=== PATIENT | female | born 1995 | race Hispanic/Latino ===

== ENCOUNTER 2019-02-07 06:50 | Emergency (ER) | payer OTHER ==
[~2019-02-07] VITALS: Ht 154.9 cm; Wt 83.0 kg
[2019-02-07] MEDS ORDERED: SODIUM CHLORIDE 0.9% 1000ML 1,000 ML IV STA (07:39)
[2019-02-07] MEDS ORDERED: PANTOPRAZOLE 40 MG 10ML VIAL IV STA (07:39)
[2019-02-07 08:07] LABS: BASOPHILS # (AUTO) 0.1 (0.0-0.1); BASOPHILS % 0.8 % (0.0-1.0); EOSINOPHILS # (AUTO) 0.1 (0.0-0.4); EOSINOPHILS % 0.8 % (0.0-6.0); HEMATOCRIT 39.4 % (34.2-44.1); HEMOGLOBIN 13.3 g/dL (12.0-16.0); LYMPHOCYTES # (AUTO) 3.2 (1.0-3.2); LYMPHOCYTES % 22.2 % (18.0-39.1); MEAN CORPUSCULAR HEMOGLOBIN 27.5 pg (28-32); MEAN CORPUSCULAR HGB CONC 33.8 g/dL (31-35); MEAN CORPUSCULAR VOLUME 81.4 fL (81-99); MONOCYTES # (AUTO) 1.2 (0.2-0.8); MONOCYTES % 8.3 % (4.4-11.3); NEUTROPHILS # (AUTO) 9.5 (2.1-6.9); NEUTROPHILS % 66.8 % (38.7-80.0); PLATELET COUNT 356 x10e3/uL (140-360); RED BLOOD COUNT 4.84 x10e6/uL (3.6-5.1)
[2019-02-07 08:11] LABS: BILIRUBIN,URINE NEGATIVE (NEGATIVE); CLARITY,URINE CLEAR (CLEAR); COLOR,URINE YELLOW (YELLOW); KETONES,URINE NEGATIVE (NEGATIVE); LEUKOCYTE ESTERASE ,URINE NEGATIVE (NEGATIVE); NITRITE,URINE NEGATIVE (NEGATIVE); PROTEIN,URINE DIPSTICK NEGATIVE (NEGATIVE); URINE UROBILINOGEN 0.2 mg/dL (0.2 - 1)
[2019-02-07] MEDS ORDERED: HYDROCODONE/APAP 7.5MG-325MG 1 EA TAB PO NR (08:15)
[2019-02-07] MEDS ORDERED: ONDANSETRON HCL INJ 2MG/ML 2ML 2 MG/ML VIAL IV NR (08:15)
[2019-02-07 08:27] LABS: ALANINE AMINOTRANSFERASE 39 IU/L (0-55); ALBUMIN 3.5 g/dL (3.5-5.0); ALKALINE PHOSPHATASE 120 IU/L (40-150); ANION GAP 12.6 mmol/L (8-16); BLOOD UREA NITROGEN 12 mg/dL (7-26); BUN/CREATININE RATIO 16 (6-25); CALCIUM 9.4 mg/dL (8.4-10.2); CARBON DIOXIDE 26 mmol/L (22-29); CHLORIDE 106 mmol/L (98-107); CREATININE, SERUM 0.73 mg/dL (0.57-1.11); EST GLOMERULAR FILTRATION RATE > 60 ML/MIN (60-); GLUCOSE 94 mg/dL (74-118); LIPASE 20 U/L (8-78); POTASSIUM 3.6 mmol/L (3.5-5.1); SODIUM 141 mmol/L (136-145)
[2019-02-07 08:28] LABS: BACTERIA,URINE FEW /HPF; EPITHELIAL CELLS,URINE FEW /LPF; RBC,URINE 0-5 /HPF (0-5); WBC,URINE (MAN) 0-5 /HPF (0-5)
[2019-02-07 09:00] LABS: PREGNANCY TEST, URINE NEGATIVE (NEGATIVE)
--- NOTE | 2019-02-07 11:04 | Diagnostic Imaging Report ---
Exam: Pelvic ultrasound History: Lower abdominal pain, possible history of polycystic ovarian syndrome. Comparison: None. Findings: Transabdominal evaluation of the pelvis. The uterus measures 8.3 x 2.8 x 5.5 cm. The endometrial stripe measures 0.4 cm. Right ovary measures 2.6 x 1.8 x 2.3 cm and the left ovary measures 2.5 x 2.3 x 2.4 cm, and Doppler flow is demonstrated bilaterally. No free fluid. Impression: Unremarkable study. Signed by: Dr. Xenia Cruz MD on 02/07/2019 11:00 AM
== END 2019-02-07 11:20 | disposition home or self-care (01) ==
LOC: ER 06:50
DX: R10.31 Right lower quadrant pain (principal); R10.32 Left lower quadrant pain
CPT/HCPCS: 36415; 76856; 80053; 81001; 81025; 83036; 83690; 85025; 87086; 99284; J2405; J7030

== ENCOUNTER 2019-11-21 12:27 | Observation (INO) | payer OTHER ==
[~2019-11-21] VITALS: Ht 154.9 cm; Wt 85.3 kg
[2019-11-21] MEDS ORDERED: SODIUM CHLORIDE 0.9% 1000ML 1,000 ML IV STA (12:46)
[2019-11-21 13:10] LABS: BASOPHILS # (AUTO) 0.1 (0.0-0.1); BASOPHILS % 0.6 % (0.0-1.0); EOSINOPHILS # (AUTO) 0.1 (0.0-0.4); EOSINOPHILS % 0.5 % (0.0-6.0); HEMATOCRIT 42.8 % (34.2-44.1); HEMOGLOBIN 13.7 g/dL (12.0-16.0); LYMPHOCYTES % 16.1 % (18.0-39.1); MEAN CORPUSCULAR HEMOGLOBIN 26.2 pg (28-32); MONOCYTES # (AUTO) 0.9 (0.2-0.8); MONOCYTES % 4.5 % (4.4-11.3); NEUTROPHILS # (AUTO) 14.7 (2.1-6.9); NEUTROPHILS % 77.5 % (38.7-80.0); PLATELET COUNT 410 x10e3/uL (140-360); RED BLOOD COUNT 5.22 x10e6/uL (3.6-5.1)
[2019-11-21 13:16] LABS: CLARITY,URINE CLEAR (CLEAR); COLOR,URINE YELLOW (YELLOW); LEUKOCYTE ESTERASE ,URINE NEGATIVE (NEGATIVE); NITRITE,URINE NEGATIVE (NEGATIVE); PROTEIN,URINE DIPSTICK NEGATIVE (NEGATIVE)
[2019-11-21 13:17] LABS: BILIRUBIN,URINE NEGATIVE (NEGATIVE); KETONES,URINE NEGATIVE (NEGATIVE); URINE UROBILINOGEN 0.2 mg/dL (0.2 - 1)
[2019-11-21 13:27] LABS: BACTERIA,URINE MODERATE /HPF; EPITHELIAL CELLS,URINE MODERATE /LPF; RBC,URINE 0-5 /HPF (0-5)
[2019-11-21 13:29] LABS: ALANINE AMINOTRANSFERASE 28 IU/L (0-55); ALBUMIN 4.1 g/dL (3.5-5.0); ALBUMIN/GLOBULIN RATIO 1.2 (0.8-2.0); ALKALINE PHOSPHATASE 132 IU/L (40-150); ANION GAP 10.8 mmol/L (8-16); BLOOD UREA NITROGEN 8 mg/dL (7-26); BUN/CREATININE RATIO 11 (6-25); CALCIUM 9.1 mg/dL (8.4-10.2); CARBON DIOXIDE 26 mmol/L (22-29); CHLORIDE 106 mmol/L (98-107); CREATININE, SERUM 0.73 mg/dL (0.57-1.11); EST GLOMERULAR FILTRATION RATE > 60 ML/MIN (60-); GLUCOSE 94 mg/dL (74-118); POTASSIUM 3.8 mmol/L (3.5-5.1); SODIUM 139 mmol/L (136-145)
[2019-11-21] MEDS ORDERED: ONDANSETRON HCL INJ 2MG/ML 2ML 2 MG/ML VIAL IV STA (14:00)
[2019-11-21] MEDS ORDERED: PIPER-TAZ 3.375 GM 50 ML IV STA (14:02)
--- NOTE | 2019-11-21 14:37 | Emergency Department Note ---
History of Present Illnes History of Present Illness Chief Complaint: Abdominal Complaints History of Present Illness This is a 24 year old female . Chief Complaint Comment PATIENT IN FROM HOME WITH COMPLAINTS OF BILATERAL LOWER ABDOMINAL PAIN SINCE 0400; PATIENT DENIES NAUSEA OR VOMITING, DENIES URINARY FREQUENCY, PAIN, OR BURNING. PATIENT STATES THAT SHE HAS HAD ABDOMINAL PAIN BEFORE BUT A CAUSE WAS NOT FOUND - DID FOLLOW-UP WITH GASTROENTEROLOGY. PATIENT APPEARS IN NO DISTRESS, RESP EVEN AND NONLABORED, AMBULATORY WITHOUT ASSISTANCE Historian: Patient Arrival Mode: Car Onset (how long ago): day(s) Radiation: Reports abdomen Severity: mild Timing of current episode: constant Progression: worsening Chronicity: recurrent Relieving factors: none Exacerbating factors: none Past Medical/Family History Physician Review I have reviewed the patient's past medical and family history. Any updates have been documented here. Past Medical History Recent Fever: No Clinical Suspicion of Infectio: No New/Unexplained Change in Ment: No Past Medical History: Diabetes Other Medical History: PCOS Past Surgical History: None Social History Smoking Cessation: Never Smoker Counseling Performed: No Alcohol Use: Social Any Illegal Drug Use: No TB Exposure/Symptoms: No Physically hurt or threatened: No Family History Family history of heart diseas: No Other Last Tetanus: UTD Any Pre-Existing Lines (PICC,: No Is patient up to date on immun: Yes Last Flu: OOD Last Pneumovax: OOD Review of Systems Review of Systems Constitutional: Reports no symptoms EENTM: Reports no symptoms Cardiovascular: Reports no symptoms Respiratory: Reports no symptoms Gastrointestinal: Reports as per HPI, Reports abdominal pain Genitourinary: Reports no symptoms Musculoskeletal: Reports no symptoms Integumentary: Reports no symptoms Neurological: Reports no symptoms Psychological: Reports no symptoms Endocrine: Reports no symptoms Hematological/Lymphatic: Reports no symptoms Physical Exam Related Data Allergies: Coded Allergies: No Known Allergies (Unverified , 02/07/19) Triage Vital Signs Vital Signs Date Time Temp Pulse Resp B/P (MAP) Pulse Ox O2 Delivery O2 Flow Rate FiO2 11/21/19 12:37 97.4 105 18 153/96 100 Vital signs reviewed: Yes Physical Exam CONSTITUTIONAL Constitutional: Present well-developed, Present well-nourished HENT HENT: Present normocephalic, Present atraumatic, Present oropharynx clear/moist, Present nose normal HENT L/R: Present left ext ear normal, Present right ext ear normal EYES Eyes: Reports PERRL, Reports conjunctivae normal NECK Neck: Present ROM normal PULMONARY Pulmonary: Present effort normal, Present breath sounds normal CARDIOVASCULAR Cardiovascular: Present regular rhythm, Present heart sounds normal, Present capillary refill normal, Present normal rate GASTROINTESTINAL Abdominal: Present soft, Present bowel sounds normal, Present tender GENITOURINARY Genitourinary: Present exam deferred SKIN Skin: Present warm, Present dry MUSCULOSKELETAL Musculoskeletal: Present ROM normal NEUROLOGICAL Neurological: Present alert, Present oriented x 3, Present no gross motor or sensory deficits PSYCHOLOGICAL Psychological: Present mood/affect normal, Present judgement normal Results Laboratory Result Diagram: 11/21/19 1250 11/21/19 1250 Laboratory Laboratory Tests Test 11/21/19 12:50 White Blood Count 18.92 x10e3/uL (4.8-10.8) Red Blood Count 5.22 x10e6/uL (3.6-5.1) Hemoglobin 13.7 g/dL (12.0-16.0) Hematocrit 42.8 % (34.2-44.1) Mean Corpuscular Volume 82.0 fL (81-99) Mean Corpuscular Hemoglobin 26.2 pg (28-32) Mean Corpuscular Hemoglobin Concent 32.0 g/dL (31-35) Red Cell Distribution Width 13.0 % (11.7-14.4) Platelet Count 410 x10e3/uL (140-360) Neutrophils (%) (Auto) 77.5 % (38.7-80.0) Lymphocytes (%) (Auto) 16.1 % (18.0-39.1) Monocytes (%) (Auto) 4.5 % (4.4-11.3) Eosinophils (%) (Auto) 0.5 % (0.0-6.0) Basophils (%) (Auto) 0.6 % (0.0-1.0) Neutrophils # (Auto) 14.7 (2.1-6.9) Lymphocytes # (Auto) 3.0 (1.0-3.2) Monocytes # (Auto) 0.9 (0.2-0.8) Eosinophils # (Auto) 0.1 (0.0-0.4) Basophils # (Auto) 0.1 (0.0-0.1) Absolute Immature Granulocyte (auto 0.16 x10e3/uL (0-0.1) D-Dimer Quantitative (PE/DVT) 0.13 ug/mLFEU (0.00-0.45) Urine Color Yellow (YELLOW) Urine Clarity Clear (CLEAR) Urine pH 6 (5 - 7) Urine Specific [place] 1.025 (1.010-1.025) Urine Protein Negative (NEGATIVE) Urine Glucose (UA) Negative (NEGATIVE) Urine Ketones Negative (NEGATIVE) Urine Blood Negative (NEGATIVE) Urine Nitrite Negative (NEGATIVE) Urine Bilirubin Negative (NEGATIVE) Urine Urobilinogen 0.2 mg/dL (0.2 - 1) Urine Leukocyte Esterase Negative (NEGATIVE) Urine RBC 0-5 /HPF (0-5) Urine WBC 6-10 /HPF (0-5) Urine Epithelial Cells Moderate /LPF (NONE) Urine Bacteria Moderate /HPF (NONE) Sodium Level 139 mmol/L (136-145) Potassium Level 3.8 mmol/L (3.5-5.1) Chloride Level 106 mmol/L (98-107) Carbon Dioxide Level 26 mmol/L (22-29) Anion Gap 10.8 mmol/L (8-16) Blood Urea Nitrogen 8 mg/dL (7-26) Creatinine 0.73 mg/dL (0.57-1.11) Estimat Glomerular Filtration Rate > 60 ML/MIN (60-) BUN/Creatinine Ratio 11 (6-25) Glucose Level 94 mg/dL (74-118) Calcium Level 9.1 mg/dL (8.4-10.2) Total Bilirubin 0.3 mg/dL (0.2-1.2) Aspartate Amino Transf (AST/SGOT) 20 IU/L (5-34) Alanine Aminotransferase (ALT/SGPT) 28 IU/L (0-55) Alkaline Phosphatase 132 IU/L (40-150) Total Protein 7.6 g/dL (6.5-8.1) Albumin 4.1 g/dL (3.5-5.0) Globulin 3.5 g/dL (2.3-3.5) Albumin/Globulin Ratio 1.2 (0.8-2.0) Human Chorionic Gonadotropin, Qual Negative (NEGATIVE) Lab results reviewed: Yes Imaging Imaging results reviewed: Yes Impressions Acute appendicitis Assessment & Plan Medical Decision Making MDM 24-year-old female arrived to the ED with complaints of suprapubic abdominal p ain. Labwork concerning for marked leukocytosis, no focal source of infection noted on labwork. Normal urinalysis. Patient received a CT abdomen and pelvis in the emergency department which showed acute appendicitis, She given a dose of Zosyn and admitted for laparoscopic removal. Dr. Bernstein consulted. Assessment & Plan Final Impression: (1) Abdominal pain (2) Appendicitis Depart Disposition: ADMITTED Last Vital Signs Date Time Temp Pulse Resp B/P (MAP) Pulse Ox O2 Delivery O2 Flow Rate FiO2 11/21/19 12:57 110 18 135/95 100 11/21/19 12:37 97.4 Medications in the ED Sodium Chloride 1,000 ml @ 0 mls/hr Q0M STAT IV Last administered on 11/21/19at 13:02; Admin Dose 999 MLS/HR; Start 11/21/19 at 12:46; Stop 11/21/19 at 12:47; Status DC Morphine Sulfate 4 mg ONCE PRN IV SEVERE PAIN (7-10); Start 11/21/19 at 14:00; Stop 11/28/19 at 13:59; Status UNV Ondansetron HCl 4 mg NOW STAT IV ; Start 11/21/19 at 14:00; Stop 11/21/19 at 14:01; Status UNV TAYA BARRIENTOS, Nov 21, 2019 14:37
--- NOTE | 2019-11-21 14:50 | Diagnostic Imaging Report ---
EXAM: CT Abdomen and Pelvis WITH contrast INDICATION: ^Y ^abd pain ^[id number] ^[id number] COMPARISON: None. TECHNIQUE: Abdomen and pelvis were scanned utilizing a multidetector helical scanner from the lung base to the pubic symphysis after administration of IV contrast. Coronal and sagittal reformations were obtained. Routine protocol was performed. Scan was performed when during portal venous phase. IV CONTRAST: 100 mL of Isovue 370 ORAL CONTRAST: Water COMPLICATIONS: None RADIATION DOSE: Total DLP: 678 mGy*cm Estimated effective dose: (DLP x 0.015 x size factor) mSv CTDIvol has been reviewed. It is below the limits set by the Radiation Protocol Committee (RPC). Dose modulation, iterative reconstruction, and/or weight based adjustment of the mA/kV was utilized to reduce the radiation dose to as low as reasonably achievable. FINDINGS: LINES and TUBES: None. LOWER THORAX: Unremarkable HEPATOBILIARY: No focal hepatic lesions. No biliary ductal dilation. GALLBLADDER: No radio-opaque stones or sludge. No wall thickening. SPLEEN: No splenomegaly. PANCREAS: No focal masses or ductal dilatation. ADRENALS: No adrenal nodules KIDNEYS/URETERS: Kidneys enhance symmetrically. No hydronephrosis. Small left renal cortical cyst No stones. GI TRACT: No abnormal distention, wall thickening, or evidence of bowel obstruction. The appendix is elongated and mildly dilated measuring up to 1 cm in caliber. There is enhancement of the appendiceal mucosal with mild periappendiceal inflammation. No appendicolith. PELVIC ORGANS/BLADDER: Unremarkable. LYMPH NODES: Prominent nonspecific subcentimeter inguinal lymph nodes. VESSELS: Unremarkable. PERITONEUM / RETROPERITONEUM: No free air or fluid. BONES: Unremarkable. SOFT TISSUES: Unremarkable. IMPRESSION: Acute uncomplicated appendicitis. Signed by: Gael Lemon MD on 11/21/2019 2:47 PM
[2019-11-21 16:31] VITALS: BP 133/87
[2019-11-21] MEDS ORDERED: SODIUM CHLORIDE 0.9% 50ML 50 ML ONE (16:32)
[2019-11-21] MEDS ORDERED: IOPAMIDOL 370 MG/ML 200 ML INFUS..BTL INJ ONE (16:33)
[2019-11-21] MEDS ORDERED: PROVERA5 MG PO (16:35)
[2019-11-21] MEDS ORDERED: DICYCLOMINE HCL20 MG PO (16:35)
[2019-11-21] MEDS: MORPHINE SULFATE INJ 4 MG/ML INJ 1ML IV PRN (16:46)
[2019-11-21] MEDS: SODIUM CHLORIDE 0.9% 1000ML 1,000 ML IV SCH (16:46)
--- NOTE | 2019-11-21 19:00 | NUR ---
Resumed care of patient. Patient awake and resting in bed, no s/s of distress at this time. Bed locked and in lowest position, side rails up x3, call light placed within reach. Patient instructed to call for assistance if needed, verbalized understanding. Will continue to monitor.
--- NOTE | 2019-11-21 19:59 | History and Physical ---
CHIEF COMPLAINT: Abdominal pain. HISTORY OF PRESENT ILLNESS: The patient is a 24-year-old female, 1-day history of pain in the lower abdomen in the right lower quadrant with some nausea. No vomiting. No fever, chills, or diarrhea. The patient states she had similar pain a year ago, which resolved spontaneously with antibiotics. PAST MEDICAL HISTORY: Unremarkable. ALLERGIES: NO DRUG ALLERGIES. PAST SURGICAL HISTORY: No previous surgery. SOCIAL HABITS: No smoking or alcohol abuse. REVIEW OF SYSTEMS: No chest pain, shortness of breath, cough, or fevers. PHYSICAL EXAMINATION: VITAL SIGNS: Stable. She is afebrile. She is awake, alert, in moderate discomfort. HEENT: Sclerae anicteric. NECK: Supple. LUNGS: Clear. HEART: Regular rate and rhythm. ABDOMEN: Soft with some guarding tenderness in the right lower quadrant without rebound. EXTREMITIES: No cyanosis or edema. LABORATORY DATA: White cell count is 18,000. Creatinine 0.7. Liver function tests unremarkable. IMAGING: CT of the abdomen showed inflamed appendix with mild stranding. ASSESSMENT: Acute appendicitis. PLAN: Recommend appendectomy. The patient states she wants a period of observation since the pain has resolved spontaneously a year ago. We will watch the patient in the hospital with IV antibiotics. Tico Bernstein MD DNNallely/MODL /[id number]
[2019-11-21 20:00] VITALS: BP 104/70
--- NOTE | 2019-11-21 20:21 | NUR ---
Spoke to Dr. Bernstein regarding plan for surgery. Per Dr. Bernstein, keep patient NPO after midnight, order CBC in AM, and he will reevaluate need for surgery tomorrow if abdominal pain persists. Patient made aware of plan.
[2019-11-21 20:54] VITALS: BP 104/70
[2019-11-21] MEDS: PIPER-TAZ 3.375 GM 50 ML IV SCH (21:38)
--- NOTE | 2019-11-21 21:38 | NUR ---
Patient tolerated dinner, resting quietly in bed, no s/s of distress, denying pain at this time.
[2019-11-22] VITALS (9 sets, daily range): BP systolic 108–127; BP diastolic 57–76
[2019-11-22] MEDS: SODIUM CHLORIDE 0.9% 1000ML 1,000 ML IV SCH ×3 (03:50→17:08)
[2019-11-22] MEDS: MORPHINE SULFATE INJ 4 MG/ML INJ 1ML IV PRN ×3 (03:58→21:32)
--- NOTE | 2019-11-22 04:00 | NUR ---
Patient c/o abdominal pain 01/10. PRN morphine administered. Patient instructed to call for assistance if needed, verbalized understanding. Will continue to monitor.
[2019-11-22] MEDS: PIPER-TAZ 3.375 GM 50 ML IV SCH ×3 (05:50→21:29)
[2019-11-22 06:09] LABS: BASOPHILS # (AUTO) 0.1 (0.0-0.1); BASOPHILS % 0.6 % (0.0-1.0); EOSINOPHILS # (AUTO) 0.1 (0.0-0.4); EOSINOPHILS % 0.8 % (0.0-6.0); HEMATOCRIT 37.5 % (34.2-44.1); HEMOGLOBIN 12.3 g/dL (12.0-16.0); LYMPHOCYTES # (AUTO) 3.2 (1.0-3.2); LYMPHOCYTES % 20.4 % (18.0-39.1); MEAN CORPUSCULAR HEMOGLOBIN 28.1 pg (28-32); MEAN CORPUSCULAR HGB CONC 32.8 g/dL (31-35); MEAN CORPUSCULAR VOLUME 85.8 fL (81-99); MONOCYTES # (AUTO) 1.2 (0.2-0.8); NEUTROPHILS # (AUTO) 10.8 (2.1-6.9); NEUTROPHILS % 69.4 % (38.7-80.0); PLATELET COUNT 320 x10e3/uL (140-360); RED BLOOD COUNT 4.37 x10e6/uL (3.6-5.1); RED CELL DISTRIBUTION WIDTH 13.2 % (11.7-14.4)
--- NOTE | 2019-11-22 06:49 | NUR ---
Bedside report given to oncoming nurse. Patient awake and resting in bed, no s/s of distress at this time. All safety measures in place.
[2019-11-22] MEDS ORDERED: BUPIVACAINE 0.25%/EPI 30ML SDV INJ ONE (10:44)
--- NOTE | 2019-11-22 10:45 | NUR ---
Taken for procedure. No s/s of acute distress noted.
[2019-11-22] MEDS ORDERED: SUGAMMADEX SODIUM 200 MG/2 ML VIAL IV ONE (11:42)
--- NOTE | 2019-11-22 13:26 | Operative Report ---
DATE OF PROCEDURE: 11/22/2019 SURGEON: Tico Bernstein MD PREOPERATIVE DIAGNOSIS: Appendicitis. POSTOPERATIVE DIAGNOSIS: Appendicitis. OPERATIVE PROCEDURE: Laparoscopic appendectomy. ANESTHESIA: General, Dr. Lam. INDICATION: A 24-year-old female with history of abdominal pain for 2 days in the right lower quadrant with CT scan confirming appendicitis. She consented for laparoscopic appendectomy. Attendant risks have been discussed. PROCEDURE FINDING: Retrocecal appendicitis. DESCRIPTION OF PROCEDURE: The patient was brought to the OR, intubated. The abdomen was prepped and draped in sterile fashion. An infraumbilical incision was made and a 12 mm port was inserted. Insufflation was then began under direct vision. Other port site placed in the right lower quadrant and right upper quadrant. The appendix was isolated. It was noted to be retrocecal. The neck of the appendix isolated and transected, flushed to the base of the cecum with the Endo-YANETH stapler blue load. The mesoappendix was then followed with the LigaSure instrument and divided the mesoappendix, achieving hemostasis. In this fashion, the tip of the appendix delivered from the retrocecal region intact and the appendix was placed in Endopouch and retrieved out of the peritoneal cavity. Irrigation was carried out. Hemostasis was achieved. The ports were removed under direct vision. Fascia closure with 0 Vicryl. Skin was then closed with subcuticular stitch. The patient was extubated and transported to recovery room. BLOOD LOSS: 5 mL. Tico Bernstein MD DNL/MODL /[id number]
[2019-11-22] MEDS ORDERED: LIDOCAINE HCL 2% LOCAL INJ 5 ML SDV VIAL INJ ONE (14:37)
[2019-11-22] MEDS ORDERED: KETOROLAC TROMETHAMINE 30 MG/ML VIAL ONE (14:37)
[2019-11-22] MEDS ORDERED: SEVOFLURANE INHAL SOLN 250 ML PEN BTL ONE (14:37)
[2019-11-22] MEDS ORDERED: PROPOFOL IV EMULSION 10 MG/ML 20 ML VIAL ONE (14:37)
[2019-11-22] MEDS ORDERED: CEFAZOLIN SOD 1 GM VIAL ONE (14:37)
[2019-11-22] MEDS ORDERED: ONDANSETRON HCL INJ 2MG/ML 2ML 2 MG/ML VIAL ONE (14:37)
[2019-11-22] MEDS ORDERED: DEXAMETHASONE SOD PHOS INJ 4 MG/ML VIAL ONE (14:37)
[2019-11-22] MEDS ORDERED: FENTANYL CITRATE/PF 100MCG/2 ML INJ ONE (15:02)
[2019-11-22] MEDS ORDERED: MIDAZOLAM HCL 2 MG/2 ML VIAL ONE (15:02)
--- NOTE | 2019-11-22 17:30 | NUR ---
Tolerated full liquids. Denies nausea or vomiting.
--- NOTE | 2019-11-22 18:58 | NUR ---
Report given to oncoming nurse of patient's status. Resting in bed, side rails upx2, call light within reach. AAOX4 to time, person, place, situation. Respirations even and unlabored.
--- NOTE | 2019-11-22 19:01 | NUR ---
Resumed care of patient. Patient awake and sitting up in bed, no s/s of distress or c/o pain at this time. Bed locked and in lowest position, side rails up x3, call light placed within reach. Patient instructed to call for assistance if needed, verbalized understanding. All safety measures in place. Will continue to monitor.
--- NOTE | 2019-11-22 21:19 | NUR ---
Received report from Rolando Osborne RN. Pt alert and oriented to name lying in bed HOB 45 degrees. Denies pain at this time. Call light within reach. Bed low and locked.
--- NOTE | 2019-11-22 21:40 | NUR ---
Handoff report given to Conchis Craft RN. Patient awake and resting in bed, no s/s of distress at this time. All safety measures in place.
--- NOTE | 2019-11-22 23:25 | NUR ---
RECEIVED REPORT FROM PREVIOUS NURSE. PATIENT IN BED WATCHING TV. PATIENT IN NO PAIN OR DISTRESS. CALL LIGHT WITHIN REACH. PATIENT IS A&OX3.
--- NOTE | 2019-11-22 23:26 | NUR ---
Handoff report given to Conchis Wade RN. Pt alert, sitting up in bed. Denies pain at this time. Call light within reach. Bed low and locked.
[2019-11-23] MEDS: PIPER-TAZ 3.375 GM 50 ML IV SCH (05:04)
[2019-11-23] MEDS: MORPHINE SULFATE INJ 4 MG/ML INJ 1ML IV PRN ×3 (05:06→10:51)
[2019-11-23 05:16] VITALS: BP 97/50
[2019-11-23] MEDS: SODIUM CHLORIDE 0.9% 1000ML 1,000 ML IV SCH ×2 (06:52→07:15)
--- NOTE | 2019-11-23 07:24 | NUR ---
GAVE BEDSIDE SHIFT REPORT TO ONCOMING NURSE. PATIENT IN BED. CALL LIGHT WITHIN REACH. HOURLY ROUNDING PERFORMED. PATIENT IS A&OX3.
[2019-11-23 07:36] VITALS: BP 104/67
[2019-11-23 08:30] VITALS: BP 104/67
--- NOTE | 2019-11-23 10:26 | NUR ---
PATIENT IS ALERT AND IN STABLE CONDITION WITH NO S/S OF RESPIRATORY DISTRESS. RIGHT SIDE ABD PAIN 3/10. IV FLUIDS INFUSING. CALL LIGHT IS WITHIN REACH, PATIENT INSTRUCTED TO CALL FOR ASSISTANCE NEEDED.
[2019-11-23 11:23] VITALS: BP 115/70
[2019-11-23] MEDS ORDERED: TYLENOL WITH C1 EACH PO (12:09)
--- NOTE | 2019-11-23 15:02 | NUR ---
PATIENT DISCHARGE HOME- PATIENT OFF THE UNIT AT 1445 PER AMBULATION ACCOMPANIED BY STAFF MEMBER TO THE FRONT LOBBY. PATIENT IS IN STABLE CONDITION WITH NO S/S OF RESPIRATORY DISTRESS. NO PAIN VOICED. TROCAR SITES OPEN TO AIR- NO DRAINAGE NOTED. DISCHARGE TEACHING, INSTRUCTIONS, AND MEDICATION GIVEN TO THE PATIENT. ALL PERSONAL ITEMS TAKEN WITH THE PATIENT.
== END 2019-11-23 14:45 | disposition home or self-care (01) ==
LOC: ER 12:27 → ERHOLD 15:07 → MED/SURG3 16:27
PROVIDERS: ADMIT Surgery; ATTEND Surgery
DX: K35.80 Unspecified acute appendicitis (principal)
CPT/HCPCS: 36415; 74177; 80053; 81001; 84702; 85025; 85379; 87635; 88304; 99284; G0378; J0690; J1100; J1885; J2001; J2250; J2270; J2405; J2543; J3010; J7030; Q9967